=== PATIENT | female | born 1970 | race Caucasian/White ===

== ENCOUNTER 2017-02-23 16:06 | Emergency (ER) | payer OTHER ==
[~2017-02-23] VITALS: Ht 165.1 cm; Wt 79.5 kg
--- NOTE | ~2017-02-23 | CT2 ---
[facility] A Service of [facility] & [facility] RADIOLOGY TEXT RESULTS PATIENT: MIRIAM LOTT LOCATION: [facility] : 72 UNIT #: [id number] AGE: [address]: Donny Betts MD SEX: F ORDER DR: [id number] [facility] [address] [place], [place] [address] [id number] MR#: [id number] Acc #: [id number] NAME: MIRIAM LOTT : 1970 SEX: F STUDY DATE/TIME: 02/23/2017 18:24 UNIT: [facility] ROOM: STUDY DESCRIPTION: CT Abd and Pelv W Cont Attending Physician: Donny Betts M.D. Ordering Physician: Donny Betts M.D. Primary Care Physician: Primary Care Physician No MEDICAL IMAGING REPORT This report is preliminary unless electronic signature is present EXAM Abdomen and pelvis CT with contrast 02/23/2017 INDICATION 46-year-old female with left lower quadrant abdominal pain and nausea and vomiting. Symptom onset 5 hours ago, status post hysterectomy, cholecystectomy, appendectomy procedures. TECHNIQUE Contrast-enhanced abdomen and pelvis CT was performed. Comparison 01/06/2012. This CT examination was performed with one or more of the following radiation dose reduction techniques: automatic exposure control, adjustment of mA and/or kV according to patient size, and iterative reconstruction. FINDINGS CT ABDOMEN: Included lung bases are clear. Aorta unremarkable. Spleen, adrenal glands, pancreas unremarkable. Liver demonstrates fatty infiltration. The extreme hepatic dome was excluded from view. Kidneys demonstrate nonobstructing stones bilaterally. CT PELVIS: Bladder unremarkable. Uterus surgically absent. No adnexal mass or drainable fluid collection. There is air and fluid distension of the hepatic flexure of the transverse colon and ascending colon with probable pseudo thickening of the hepatic flexure, rather than low grade inflammatory change. Appendix surgically absent. No bowel obstruction. Incidental follicle in the right ovary. Inguinal canals are unremarkable. Osseous structures intact. IMPRESSION 1. No clearly acute process in the abdomen or pelvis. No bowel obstruction, drainable fluid collection or convincing area of inflammatory change. Probable pseudo thickening of the hepatic STS. [facility] A Service of [facility] & [facility] RADIOLOGY TEXT RESULTS PATIENT: MIRIAM LOTT LOCATION: [facility] #: [id number] : 72 UNIT #: [id number] AGE: [address]: Donny Betts MD SEX: F ORDER DR: flexure of the colon. 2. Air, fluid and stool distension of the ascending colon and transverse colon, nonspecific. 3. Surgical absence of the gallbladder, uterus and appendix. Dictated by... Agustin Vazquez M.D. THIS IS AN ELECTRONICALLY VERIFIED REPORT Agustin Vazquez M.D. at 02/24/2017 11:29 PM ADRIENNE/jhoan TD: 02/24/2017 10:13 JOB #: [id number] MEDICAL IMAGING REPORT Page 1 of 1 COPY
[~2017-02-23 16:06] MED LIST: ALBUTEROL17 GM; ALBUTEROL17 GM INH; ALBUTEROL17 GM NEB; ASPIR-TRIN325 MG PO; ASPIRINA500 MG PO; BACTRIM DS TABL1 TA1 PO; BACTRIM DS TABL1 TA2 PO; BENTYL10 MG PO; CERTAGEN PO; DESYREL100 MG PO; DILANTIN PO; FLAGYL PO; FLEXERIL10 M1 PO; HYDROCODONE-APA1 T30; LITHIUM PO; LORTAB 10-5001 EACH PO; LORTAB 5/500 TA1 TA1 PO; NAPROSYN500 MG PO; NEURONTIN PO; NO MEDICATIONS; NORCO1 TAB 10/3 PO; PEN-VEE K PO; PERCOCET 5-3251 TAB PO; PERCOCET5/325 PO; PHENERGAN; PHENERGAN DM1 ML PO; PHENERGAN PO; PHENERGAN25 M1 PO; PHENERGAN25 MG PO; PREDNISONE PO; PRILOSEC20 M1 PO; PROTONIX PO; PROVENTIL INH0.5 ML; SEROQUEL PO; TYLENOL #3 PO; TYLOX 5-500 CA1 EACH PO; ULTRAM PO; VICODIN 5/1 TAB 5/50 PO; VICODIN 5/500 T1 TAB PO; VOLTAREN75 MG PO; ZITHROMAX PO
[2017-02-23 17:02] LABS: URINE SOURCE CLEAN CATCH
[2017-02-23 17:06] LABS: URINE APPEARANCE TURBID; URINE BLOOD 2+ (NEG); URINE COLOR ORANGE; URINE GLUCOSE NEG (NEG); URINE KETONE NEG (NEG); URINE LEUKOCYTE ESTERASE 2+ (NEG); URINE NITRATE POS (NEG); URINE PH 5.5 (5-8); URINE PROTEIN 3+ (NEG); URINE SPECIFIC GRAVITY 1.044 (1.003-1.035)
[2017-02-23 17:08] LABS: BASOPHIL% 0.5 % (0-2.5); DIFF IND NO; EOSINOPHIL# 0.2 X10e3 (0-0.7); EOSINOPHIL% 2.2 % (0.0-7.0); HEMATOCRIT 38.2 % (35.0-45.0); HEMOGLOBIN 12.4 gm/dL (12.0-16.0); LYMPHOCYTE# 2.7 X10e3 (1.0-3.5); LYMPHOCYTE% 38.7 % (17.0-45.0); MEAN CORPUSCULAR HEMOGLOBIN 26.3 PG (28-34); MEAN CORPUSCULAR HGB CONC 32.5 g/dL (30-36); MEAN PLATELET VOLUME 7.4 FL (6.5-11.5); MONOCYTE# 0.5 X10e3 (0-1.0); MONOCYTE% 7.6 % (3.0-12.0); NEUTROPHIL# 3.5 X10e3 (1.5-7.1); PLATELET COUNT 391 X10e3 (140-420); RED BLOOD COUNT 4.72 X10e (3.90-5.30); RED CELL DISTRIBUTION WIDTH 17.1 % (11.0-15.5); WHITE BLOOD COUNT 6.9 X10e3 (4.0-10.5)
[2017-02-23 17:09] LABS: CULTURE INDICATED? YES; URBCS1 AUWI INNUM /[HPF] (0-2); URINE BACTERIA AUWI 3+ (NEGATIVE); URINE SQUAMOUS EPITHELIAL CELL OCC /[HPF]; UWBCS1 AUWI INNUM (0-5)
[2017-02-23 17:11] LABS: URINE BILIRUBIN NEG (NEG)
[2017-02-23 17:14] LABS: U HYALINE CASTS AUWI 0-2 /[LPF]
[2017-02-23 17:29] LABS: ALBUMIN SERUM 4.6 g/dL (3.5-5.0); BILIRUBIN, DIRECT 0.1 mg/dL (0.0-0.2); BILIRUBIN,INDIRECT 0.5 mg/dL (0.0-0.9); BILIRUBIN,TOTAL 0.6 mg/dL (0.2-2.0); BUN/CREATININE RATIO 25.55; CALCIUM SERUM 9.3 mg/dL (8.4-10.2); CREATININE SERUM 0.9 mg/dL (0.6-1.4); GLOM FILT RATE Estimated 77.3 mL/min (>60); POTASSIUM 3.5 mmol/L (3.5-5.1); PROTEIN TOTAL SERUM 8.2 g/dL (6.0-8.3)
== END 2017-02-23 19:43 | disposition home or self-care (01) ==
LOC: CED 16:06
PROVIDERS: Emergency Medicine
DX: N30.01 Acute cystitis with hematuria (principal); J45.909 Unspecified asthma, uncomplicated; F17.200 Nicotine dependence, unspecified, uncomplicated; Z90.710 Acquired absence of both cervix and uterus; Z90.49 Acquired absence of other specified parts of digestive tract; Z88.1 Allergy status to other antibiotic agents
CPT/HCPCS: 36415; 74177; 80048; 80076; 81003; 82150; 83690; 85025; 87086; 87088; 87186; 96365; 96375; 99284; J0595; J0696; J2765; Q9967